=== PATIENT | female | born 1965 | race Caucasian/White ===

== ENCOUNTER 2023-12-22 01:14 | Day surgery (SDC) | payer OTHER, SELFPAY ==
[2023-12-12 13:58] VITALS: BMI 27.3
--- NOTE | 2023-12-12 14:07 | PC.NURSE ---
Report to the Outpatient Waiting Room, entrance under the green pavilion located off [facility], at time _0845_ on date _[id number]_. Planned Procedure Time: _1045_. Time changes happen often and if your time is changed the preop area will call you the afternoon before. - You and your visitor will be asked to self-screen and do not enter if you have any COVID symptoms. - A mask is optional within the hospital at this time. Patients may have clear liquids (water, carbonated beverages, clear teas, apple juice) until 3 hours prior to surgery with a maximum of 20 ounces. - No food from midnight until time of surgery Take the following medications with a SIP of water the morning of surgery: __None DO NOT STOP ANY OF YOUR OTHER PRESCRIPTION MEDICATIONS PRIOR TO SURGERY ?EXCEPT THE FOLLOWING Medications to discontinue per physician ____Vitamin d3 Date to take last yebo__[id number] Please no make-up, nail greenlandic, hairspray, perfume, deodorant, or body powder the day of surgery. No jewelry (including any body piercings) or valuables the day of surgery, leave them at home. Please take a shower or bath the night before, or the morning of, surgery with an antibacterial soap. Wear comfortable, loose fitting clothing. - Jewelry must be removed prior to entering the operating room. Rings and piercings that are not removed may be cut off. - The hospital will not accept responsibility for valuables. - Please leave all valuables, including medications, at home the day of surgery. If you are going home after surgery, a licensed party bus driver must drive you home. - NO public transportation without another adult if you receive anesthesia. - We recommend that an adult stay with you for 24 hours following discharge. - We also recommend that you do not drive, make important decision, drink alcoholic beverages, or take any drugs that were not prescribed by your health care provider for at least 24 hours after your discharge time. Follow any additional instructions given to you from your surgeon. If you or anyone in your household have experienced Covid symptoms in the past week, please notify your surgeon or the nurse liaison at the phone number below for possible testing. Telephone instructions given to _Pam__and asked if any additional questions and then verbalized understanding. Patient advised to call surgeon office or pre surgery nurse liaison [phone] if any additional questions.
--- NOTE | 2023-12-17 19:36 | PM.IMHP ---
H&P: HPI History of Present Illness Date/Time: 12/17/23 19:36 Chief Complaint: incontinence Narrative: 58yo desires treatment for NANI Review of Systems Review of Systems: All systems reviewed & are unremarkable except as noted in HPI and below PMFSH Social History Social History Smoking status: Never smoker Alcohol intake: current Drinks per week: 2 Living arrangements: with family Spiritual care concerns: No Meds Home Medications and Allergies Home Medications Medication Instructions Recorded Confirmed Type cholecalciferol (vitamin D3) 125 125 mcg PO DAILY 12/12/23 12/12/23 History mcg (5,000 unit) tablet (Vitamin D3) Allergies Allergy/AdvReac Type Severity Reaction Status Date / Time Penicillins Allergy Intermediate Hives Verified 12/12/23 13:55 Exam Narrative: urethral hypermobility Assessment and Plan Assessment and plan (1) NANI (stress urinary incontinence, female): Code(s): N39.3 - Stress incontinence (female) (male) Status: Acute Assessment and Plan: urethral sling
--- NOTE | 2023-12-21 12:04 | P.PNAN_ITS ---
Anes - Initial Pre Proc Eval Procedure: Operation Date: 12/22/23 10:45 Proposed Procedures p Urethral Sling - Will Hunter MD Date/Time: 12/21/23 12:04 Surgeon: Will Hunter MD Pre Op Diagnosis: stress incontinence Patient Data Age: 58 Gender: F Height: 1.52 m Weight: 63.6 kg Allergies Allergy/AdvReac Type Severity Reaction Status Date / Time Penicillins Allergy Intermediate Hives Verified 12/22/23 08:39 Home Medications Medication Instructions Recorded Confirmed Type cholecalciferol (vitamin D3) 125 125 mcg PO DAILY 12/12/23 12/22/23 History mcg (5,000 unit) tablet (Vitamin D3) hydrocodone 5 mg-acetaminophen 325 1 tablet PO Q6H PRN pain #14 tabs 12/22/23 Rx mg tablet hydrocodone 5 mg-acetaminophen 325 1 tablet PO Q6H PRN pain #20 tabs 12/22/23 Rx mg tablet sulfamethoxazole 800 1 tablet PO Q12H #7 tabs 12/22/23 Rx mg-trimethoprim 160 mg tablet (Bactrim DS) tramadol 50 mg tablet 50 mg PO Q6H PRN pain #20 tabs 12/22/23 Rx Patient hx anesthesia problems: none Family hx anesthesia problems: none Results Review: All pre-operative results and documents have been reviewed as part of the pre- operative evaluation. [facility] Social History Social History Smoking status: Never smoker Alcohol intake: current Drinks per week: 2 Living arrangements: with family Spiritual care concerns: No Anes - Eval Final PreProcedure Day of Procedure 12/21/23 12:04 Patient weight: overweight Heart: regular rate and rhythm Lungs: clear to auscultation Airway: Mallampati scale class II Neurological: alert and oriented Last oral intake: >/= 8 hours ASA classification: I Emergent: no Anesthetic plan: proceed Anesthesia type and monitoring: general GIVS and standard monitoring Results Review: All pre-operative results and documents have been reviewed as part of the pre- operative evaluation. Informed Consent: The patient's anesthetic plan and its attendant risks and benefits were discussed with the patient/family/POA. Questions were solicited and answers provided to the satisfaction of the patient/family/POA.
--- NOTE | 2023-12-22 04:35 | WPDHPUPDATE1 ---
History and Physical Update Update Date/Time: 12/22/23 04:35 History and Physical has been reviewed, including an updated exam of the patient. There are NO changes in the patient's condition. Risks, benefits, and alternatives have been discussed and questions answered. Patient agrees to proceed with procedure.
[2023-12-22 09:15] VITALS: BP 130/77; PULSE 92; RESP 16; TEMP 37.3; O2SAT 100
[2023-12-22] MEDS: LACTATED RINGERS 1,000 ML 30 ML IV CONT (09:15)
[2023-12-22] MEDS: ceFAZolin 2 GM/D5W 50 ML 2 GM/50 ML BAG IVPB (09:52)
[2023-12-22] MEDS: BUPIVACAINE/EPINEPHRINE 0.5% 10 ML VIAL INFILTRATE (10:01)
[2023-12-22 10:36] VITALS: BP 98/56; PULSE 84; RESP 12; O2SAT 100
--- NOTE | 2023-12-22 10:39 | P.OP_ITS ---
Procedure Note - Detailed Date of Procedure 12/22/23 Pre-op Diagnosis stress incontinence Post-op Diagnosis Same Procedure Performed Placement with removal of urethral sling Cystoscopy Surgeon Will Hunter MD Anesthesia MAC and Local Indications This is a woman with stress incontinence. She presents today for urethral sling. She understands risks of bleeding, infection, damage to the urinary tract, vaginal mesh extrusion, urinary tract mesh erosion, obstructive voiding requiring secondary procedure, hip and leg pain, dyspareunia she agreed to proceed Findings Small rent and the left distal urethra. Sling removed. Johnson catheter placed Description of Procedure She was correctly identified. Informed consent obtained. She had from the operating room. She was given monitored anesthesia care. She was placed in dorsal lithotomy position. She was prepped draped sterile fashion. Time-out performed. Examination revealed exuberant tissue on the mid urethra more so on the patient's left. I anesthetized the subcutaneous tissues under the mid urethra. I marked on the inner thigh incisions. I anesthetized the skin and made those incisions. I dissected out laterally from my urethral incision taking care not to injure the urethra the vaginal wall. It was somewhat more difficult on the patient's left side due to the exuberant tissue. Once the dissection was performed I passed helical trocars. I did 1st toe on the patient's left and then on the right. The trocars passed quite easily. I connected the sling to the trocars and brought out through the thigh incision. I tensioned the sling appropriately. A chondroplasty she has. I then closed the incision with 2-0 Vicryl. I then performed cystoscopy. The bladder was examined. There is no blood in the Johnson catheter. The right ureter had a small ureterocele. There is no surgical artifact or injury to the bladder. There was no other bladder abnormalities. While examining the urethra a small rent was seen in the left distal urethra I could see exposed mesh. At this point I decided I needed to remove the sling allow for urethral healing and come back and complete the sling. I removed the Vicryl stitch. I located the sling. I incised the sling in the midline and removed the entire sling. I examined the urethra into the appeared to have no active bleeding. I reclosed the vaginal incision with 2-0 Vicryl. I reperformed cystoscopy. The same findings were found in the bladder. In the urethra could see with the small rent in the urethra was. There was no bleeding in this area. There is no significant lacer ation to the urethra. I replaced the Johnson catheter which only for the weekend. We will make another attempt at urethral sling in 4-6 weeks. Implants None Estimated Blood Loss 30 Drains Yes (Johnson catheter) Packing No Pathology None sent Complications No immediate complications Condition Stable Disposition PACU
[2023-12-22 11:05] VITALS: BP 120/70; PULSE 84; RESP 16
[2023-12-22] MEDS: ACETAMINOPHEN 500 MG TABLET 1000 MG PO (11:24)
[2023-12-22 11:35] VITALS: BP 130/70; PULSE 83; RESP 16
[2023-12-22 12:05] VITALS: BP 126/68; PULSE 86; RESP 16
== END 2023-12-22 12:21 | disposition home or self-care (01) ==
PROVIDERS: PCP Nurse Practitioner Women's Health; Visit Provider Urology
PROC: (CPT 57288; principal; 2023-12-22 10:45)
DX: N39.3 Stress incontinence (female) (male) (principal); N99.71 Accidental puncture and laceration of a genitourinary system organ or structure during a genitourinary system procedure; Z53.8 Procedure and treatment not carried out for other reasons
CPT/HCPCS: 57288; A9270; C1771; J0690; J1100; J2250; J2405; J2704; J3010; J7030; J7120

== ENCOUNTER 2024-05-10 00:21 | Day surgery (SDC) | payer OTHER, SELFPAY ==
[2024-04-29 15:43] VITALS: BMI 27.3
--- NOTE | 2024-04-29 15:47 | SUR.PREOP ---
Report to the Outpatient Waiting Room, entrance under the green pavilion located off [facility], at time 0715 on date 05/10/24. Planned Procedure Time: 09.? Time changes happen often and if your time is changed the preop area will call you the afternoon before. - You and your visitor will be asked to self-screen and do not enter if you have any COVID symptoms. Please call surgeon if you need to reschedule. - A mask is optional within the hospital at this time. Patients may have clear liquids (water, carbonated beverages, clear teas, apple juice) until 3 hours prior to surgery with a maximum of 20 ounces. - No food from midnight until time of surgery and no smoking - Infants may have breast milk until 4 hours before surgery, formula 6 hours prior to surgery. - Children will be allowed to drink immediately following surgery.? If applicable, please bring a bottle or sippy cup to assist with drinking. Juice, water, soda, and popsicles are readily available.? For infants on formula, please bring formula the day of surgery.? Pacifiers are allowed. Take only the following medications with a SIP of water on the morning of surgery: n/a DO NOT STOP ANY OF YOUR OTHER PRESCRIPTION MEDICATIONS PRIOR TO SURGERY EXCEPT THE FOLLOWING Medications to discontinue per physician n/a Date to take last dose Please no make-up, nail kinyarwanda, hairspray, perfume, deodorant, or body powder the day of surgery.? No jewelry (including any body piercings) or valuables the day of surgery, leave them at home.? Please take a shower or bath the night before, or the morning of, surgery with an antibacterial soap.? Wear comfortable, loose fitting clothing.? Children are encouraged to wear pajamas. - Jewelry must be removed prior to entering the operating room.? Rings and piercings that are not removed may be cut off. - The hospital will not accept responsibility for valuables.? - Please leave all valuables, including medications, at home the day of surgery. If you are going home after surgery, a licensed fast food delivery driver must drive you home.? - NO public transportation without another adult if you receive anesthesia. - We recommend that an adult stay with you for 24 hours following discharge. - We also recommend that you do not drive, make important decision, drink alcoholic beverages, or take any drugs that were not prescribed by your health care provider for at least 24 hours after your discharge time. For Pediatric surgeries, we recommend two adults accompany the child home. Follow any additional instructions given to you from your surgeon. Telephone instructions given to _patient_and asked if any additional questions and then verbalized understanding. Patient advised to call surgeon office or pre surgery nurse liaison [phone] if any additional questions.
--- NOTE | 2024-05-05 17:25 | PM.IMHP ---
H&P: HPI History of Present Illness Date/Time: 05/05/24 17:25 Chief Complaint: NANI Narrative: presents for urethral sling. Previous attempt aborted due to urethral injury Review of Systems Review of Systems: All systems reviewed & are unremarkable except as noted in HPI and below PMFSH Social History Social History Smoking status: Never smoker Alcohol intake: current Drinks per week: 2 Living arrangements: with family Spiritual care concerns: No Meds Home Medications and Allergies Home Medications Medication Instructions Recorded Confirmed Type No Home Medications 04/29/24 04/29/24 History Allergies Allergy/AdvReac Type Severity Reaction Status Date / Time Penicillins Allergy Intermediate Hives Verified 12/22/23 08:39 Exam Narrative: + urethral mobilty Assessment and Plan Assessment and plan (1) NANI (stress urinary incontinence, female): Code(s): N39.3 - Stress incontinence (female) (male) Status: Acute Assessment and Plan: plan for urethral sling. risks of injury to urinary tract discussed
--- NOTE | 2024-05-09 15:13 | P.PNAN_ITS ---
Anes - Initial Pre Proc Eval Procedure: Operation Date: 05/10/24 09:15 Proposed Procedures p Urethral Sling - Will Hunter MD Date/Time: 05/09/24 15:13 Surgeon: Will Hunter MD Pre Op Diagnosis: stress incont Patient Data Age: 58 Gender: F Height: 1.52 m Weight: 63.5 kg Allergies Allergy/AdvReac Type Severity Reaction Status Date / Time Penicillins Allergy Intermediate Hives Verified 05/10/24 08:07 Home Medications Medication Instructions Recorded Confirmed Type hydrocodone 5 mg-acetaminophen 325 1 tablet PO Q6H PRN pain #20 tabs 05/10/24 Rx mg tablet Patient hx anesthesia problems: none Family hx anesthesia problems: none Results Review: All pre-operative results and documents have been reviewed as part of the pre- operative evaluation. [facility] Social History Social History Smoking status: Never smoker Alcohol intake: current Drinks per week: 2 Living arrangements: with family Spiritual care concerns: No Anes - Eval Final PreProcedure Day of Procedure 05/09/24 15:13 Patient weight: overweight Heart: regular rate and rhythm Lungs: clear to auscultation Airway: Mallampati scale class II Neurological: alert and oriented Last oral intake: >/= 8 hours ASA classification: I Emergent: no Anesthetic plan: proceed Anesthesia type and monitoring: general LMA and standard monitoring Results Review: All pre-operative results and documents have been reviewed as part of the pre- operative evaluation. Informed Consent: The patient's anesthetic plan and its attendant risks and benefits were discussed with the patient/family/POA. Questions were solicited and answers provided to the satisfaction of the patient/family/POA.
[2024-05-10] VITALS (7 sets, daily range): BP systolic 88–139; BP diastolic 46–83; PULSE 82–95; RESP 12–16; TEMP 36.1–36.4; O2SAT 99–100; BMI 28.0
--- NOTE | 2024-05-10 04:21 | WPDHPUPDATE1 ---
History and Physical Update Update Date/Time: 05/10/24 04:21 History and Physical has been reviewed, including an updated exam of the patient. There are NO changes in the patient's condition. Risks, benefits, and alternatives have been discussed and questions answered. Patient agrees to proceed with procedure.
[2024-05-10] MEDS: LACTATED RINGERS 1,000 ML 30 ML IV CONT (07:55)
[2024-05-10] MEDS: ceFAZolin 2 GM/D5W 50 ML 2 GM/50 ML BAG IVPB (08:53)
[2024-05-10] MEDS: BUPIVACAINE/EPINEPHRINE 0.5% 50 ML VIAL INFILTRATE (09:11)
--- NOTE | 2024-05-10 09:29 | W.PM.PROC2 ---
Procedure Note - Detailed Date of Procedure 05/10/24 Pre-op Diagnosis Stress incontinence Post-op Diagnosis Same Procedure Performed mid urethral sling cystoscopy Surgeon Will Hunter MD Anesthesia General Indications This is a female with confirm stress urinary incontinence. She desires surgical correction. She understands the risks of bleeding, infection, injury to the urinary tract, vaginal mesh extrusion, urinary tract mesh erosion, obstructive voiding requiring a secondary procedure, hip and leg pain, dyspareunia, inability to improve overactive bladder symptoms. She agrees to proceed. We attempted a urethral sling several months ago. Unfortunately there was a urethral injury noted. This is now healed she is here today for repeat urethral sling. She understands the risks as detailed above Findings Uncomplicated urethral sling Description of Procedure She was correctly identified. Informed consent obtained. She was brought the operating room. She was given appropriate anesthesia. She was given appropriate perioperative antibiotics. A time-out performed. I marked out the site of the inner thigh incisions. I anesthetized the skin and made those incisions. Of note she has very exuberant tissue underneath the mid urethra. I anesthetized the anterior vaginal wall over the mid urethra. I made a 1 cm incision. I dissected out laterally taking great care not to injure the urethra or the vaginal wall. I carefully passed the helical trocars. First on the left. Then on the right. I did this from the thigh incision towards the vaginal incision. The tip of the trocar was kept in contact with my finger at all times and away from the urethra. There was no violation of the sulcus. The sling was connected to the trocars and brought out through the thigh incision. I tensioned the sling appropriately. I cut and the plastic sheaths. I then closed the incision with 2 0 Vicryl. On cystoscopy there is no tumors or surgical artifact. There was no surgical artifact in the urethra. There is no bladder abnormalities. I cut the excess sling material. Close incisions with glue. She was awakened and transferred to the PACU in stable condition. Implants Urethral sling Estimated Blood Loss 20 Drains No Packing No Pathology None sent Complications No immediate complications Condition Stable Disposition PACU
== END 2024-05-10 11:10 | disposition home or self-care (01) ==
PROVIDERS: PCP Nurse Practitioner Women's Health; Visit Provider Urology
PROC: (CPT 57288; principal; 2024-05-10 09:15)
DX: N39.3 Stress incontinence (female) (male) (principal)
CPT/HCPCS: 57288; C1771; J0690; J1100; J2003; J2250; J2405; J2704; J3010; J7120